=== PATIENT | male | born 1985 | race Caucasian/White ===

== ENCOUNTER 2021-09-30 18:12 | Emergency (ER) | payer OTHER, SELFPAY ==
[2021-09-30 18:25] VITALS: BP 135/87; PULSE 74; RESP 18; TEMP 36.7; O2SAT 98
--- NOTE | 2021-09-30 18:43 | ED.GENADULT ---
HPI - General Adult General Chief complaint: Back Pain/Injury Stated complaint: Low Back Pain Source: patient Mode of arrival: ambulatory Limitations: no limitations History of Present Illness HPI narrative: Patient presents for evaluation of low back pain with radiation down the posterior aspect of the right lower extremity. Symptom onset today. States symptoms started immediately after bending over to pick his dog up. States pain is a pulling sensation and rated 7/10 in severity. No saddle anesthesia. No bladder/bowel incontinence. He took two doses of ibuprofen 600mg PO earlier which took the edge off. He states he has been told not to take NSAIDs as he has Crohn's disease. Moving from sitting to standing position seems to worsen his symptoms. Related Data Allergies Allergy/AdvReac Type Severity Reaction Status Date / Time No Known Allergies Allergy Verified 09/30/21 18:39 Review of Systems Review of Systems: CONSTITUTIONAL: Denies fever, chills, or sweats. EYES: Denies visual changes, redness, or discharge. ENT: Denies rhinorrhea, congestion, sore throat, or otalgia. CARDIOVASCULAR: Denies chest pain, palpitations, or edema. RESPIRATORY: Denies cough or dyspnea. GASTROINTESTINAL: Denies abdominal pain, nausea, vomiting, or diarrhea. GENITOURINARY: Denies dysuria or hematuria. SKIN: Denies rash or itching. MUSCULOSKELETAL: Reports low back pain with radiation down posterior aspect of right lower extremity. NEUROLOGIC: Denies headache, numbness, dizziness, or weakness. PSYCHIATRIC: Denies anxiety or depression. FORMERLY [facility] Past Medical History Medical History Crohn's colitis Sciatica, right side Surgical History Surgical History History of creation of ostomy Family History Family History Mother Family history non-contributory Social History Social History Smoking status: Former smoker Substance use: never Gender identity (if verbalized by the patient): Male Sexual Orientation (if Verbalized by the Patient): Straight or Heterosexual Spiritual care concerns: No Exam Narrative: GENERAL: Well-appearing, well-nourished, and in no acute distress. HEAD: Normocephalic, atraumatic. EYES: PERRLA and EOMI. ENT: Nares clear, no rhinorrhea or epistaxis. Mucous membranes moist. Oropharynx without tonsillar hypertrophy exudate or other lesions. Bilateral TMs pearly sandoval nonbulging NECK: Supple. No adenopathy or masses. No carotid bruits or JVD CHEST: Clear to auscultation. No respiratory distress. No wheezes rales or rhonchi HEART: Regular rate and rhythm. No murmur heard. Normal peripheral pulses. ABDOMEN: Soft, nontender, nondistended, normal active bowel sounds. EXTREMITIES: Normal range of motion. No edema. BACK: Tenderness in bilateral paraspinous muscles of the lumbar spine without discrete midline bony spinal tenderness. Negative straight leg raise bilaterally. SKIN: Warm, dry, no rash. NEURO: No focal deficits. Alert and oriented x3. PSYCH: Normal mood and affect. Course Course Emergency Course: This is a 36-year-old male who presented with classic sciatica symptoms. He has no emergent red flag symptoms. I did offer to check x ray which he declined. Will avoid NSAIDs due to Crohns. Given solumedrol here. DC with Medrol Dosepak, Flexeril and hydrocodone. Follow-up outpatient for further evaluation and treatment return for worsening symptoms. Patient agreement with plan of care. Level of Care: Express Care Visit Vital Signs Vital signs: Vital Signs Temperature 36.7 C 09/30/21 18:25 Pulse Rate 74 09/30/21 18:25 Respiratory Rate 18 09/30/21 18:25 Blood Pressure 135/87 09/30/21 18:25 Pulse Oximetry 98 09/30/21 18:25 Oxygen Delivery Room Air
[2021-09-30] MEDS: methylPREDNISolone SOD SUCC 125 MG VIAL IM (18:47)
== END 2021-09-30 18:50 | disposition home or self-care (01) ==
PROVIDERS: Emergency Provider Nurse Practitioner
DX: M54.31 Sciatica, right side (principal); Z87.891 Personal history of nicotine dependence; K50.90 Crohn's disease, unspecified, without complications
CPT/HCPCS: 96372; 99213; G0463; J2930